=== PATIENT | female | born 1980 | race Caucasian/White ===

== ENCOUNTER 2018-06-12 05:15 | Emergency (ER) | END 2018-06-12 09:40 | disposition home or self-care (01) ==

== ENCOUNTER 2018-08-28 09:25 | Emergency (ER) | END 2018-08-28 12:16 | disposition home or self-care (01) ==

== ENCOUNTER 2019-03-07 12:54 | Observation (INO) | payer OTHER ==
[~2019-03-07] VITALS: Ht 162.6 cm; Wt 112.3 kg
[~2019-03-07 12:54] MED LIST: ACET325T33 PO; CIPR500T4 PO; DIC20 PO; HYDR-3980 PO
[2019-03-07 13:02] VITALS: BP 151/84; PULSE 93; RESP 20; Ht 162.6 cm; Wt 112.3 kg
[2019-03-07] MEDS ORDERED: METF500T3 PO (13:12)
[2019-03-07] MEDS ORDERED: PREN1TAB13 PO (13:13)
[2019-03-07] MEDS ORDERED: LURA120T PO (13:14)
--- NOTE | 2019-03-07 17:08 | HP ---
Date/Time of Note Date/Time of Note DATE: 03/07/19 TIME: 17:03 OB - History Hx of Present Free Text/Dictation March 07, 2019 : 3 Para: 2 Care: Good Care Other Concerns: 38-year-old with IUP at 37 weeks [address] care with Dr[address] Dipti Will, was sent from the clinic today due to low back pain and bilateral lower extremity swelling since yesterday. Patient denies any headache. Reports occasional blurred vision but when she only change her position. Denies any epigastric pain or right upper quadrant pain. She denies any leaking of fluid, vaginal bleeding decreased movement. Antepartum course was completed by AMA as well as diabetes. She is currently on metformin 500 mg p.o. twice daily. Patient noted to be elevated ranging from 130s-160s over 70s-80s during observation. Had once systolic BP in 160s' range only. rest 130-140's/ 70-80's Patient will be admitted for observation and rule out PIH and continuous monitoring. records are available Past Family/Social History * Past Medical, Surgical, Family and Obstetric Histories reviewed from chart. OB Admission Exam Vital Signs Vital Signs Vital Signs Date Temp Pulse Resp B/P (MAP) Pulse Ox O2 O2 Flow FiO2 Time Delivery Rate 03/07/19 97.6 93 20 151/84 Room Air 13:02 (106) Physical Exam HEENT: WNL Lungs: Clear Abdomen: WNL Extremities: Edema (2+ bilateral symmetric lower extremity nonpitting edema noted) Cervical Dilatation: None Effacement: 0% Station: -2 Membranes: Intact Heart Rate: 130's Accelerations: Accelerations Present Decelerations: No Decelerations Varibility: Moderate Contractions on Admission: >10 Minutes Apart Intensity: Mild Last 72 hours Lab Results CBC & BMP 03/07/19 15:43 Liver Function Test 03/07/19 15:43 Alanine Aminotransferase (ALT/SGPT) 13 Albumin 3.3 Alkaline Phosphatase 126 H Aspartate Amino Transf (AST/SGOT) 17 Direct Bilirubin 0.00 Total Protein 6.3 OB Assessment/Plan Other Assessment: IUP at 37 weeks and 4 days Gestational hypertension versus preeclampsia, PIH lab requested Patient will be closel monitored in labor and delivery for rule out PIH Start 24-hour urine protein collection Consider delivery if any evidence of severe preeclampsia, abnormality of the lab or symptoms or worsening of hypertension Plan of care discussed with the patient DARLIN TSAI MD Mar 07, 2019 17:08
[2019-03-07] MEDS ORDERED: NIFEdipine 10 MG CAP PO ONE (17:15)
[2019-03-07] MEDS ORDERED: metFORMIN 500 MG TAB PO SCH (19:00)
--- NOTE | 2019-03-07 19:06 | TRIAGE ---
OB Triage Datetime Report Generated by CPN: 03/07/2019 19:06 Datetime: 03/07/2019 19:04 Assessment Type: Ongoing Assessment (Annotations: PT STABLE BLOOD PRESSURE DECREASED. NO COMPLAINTS OF PAIN. WAITING FOR TRANSFER TO L/D FOR CYTOTEC INDUCTION.) Datetime: 03/07/2019 18:58 Labor Evaluation Frequency: 0 Quality: Mild Pattern: Normal: <= 5 Contractions in 10 Minutes Resting Tone Cuney: Relaxed Heart Rate FHR Baseline Rate: 135 Monitor Mode: External US FHR Baseline Changes: No Baseline Change Variability: Moderate 6-25 bpm Accelerations: 15X15 Decelerations: None Category: Category I Datetime: 03/07/2019 18:55 Stage of : Antepartum Datetime: 03/07/2019 18:39 Vaginal Exam Dilatation (cms): 0.5 Exam By: DR SALCEDA, MD Cervix, Position: Posterior Datetime: 03/07/2019 18:00 Labor Evaluation Frequency: X1 Monitor Mode: External Duration (sec)2399: 60 Quality: Mild Pattern: Normal: <= 5 Contractions in 10 Minutes Resting Tone Cuney: Relaxed Heart Rate FHR Baseline Rate: 130 Monitor Mode: External US FHR Baseline Changes: No Baseline Change Variability: Moderate 6-25 bpm Accelerations: 15X15 Decelerations: None Category: Category I Pain Assessment Pain Scale: 0 Pain Presence: None/Denies Pain Type: N/A Pain Goal: 0 Datetime: 03/07/2019 17:00 Labor Evaluation Frequency: 0 Monitor Mode: External Heart Rate FHR Baseline Rate: 130 Monitor Mode: External US FHR Baseline Changes: No Baseline Change Variability: Moderate 6-25 bpm Accelerations: 15X15 Decelerations: None Category: Category I Pain Assessment Pain Scale: 0 Pain Presence: None/Denies Pain Type: N/A Pain Goal: 0 Datetime: 03/07/2019 16:10 Monitor Mode: External Resting Tone Cuney: Relaxed Heart Rate FHR Baseline Rate: 120 Monitor Mode: External US FHR Baseline Changes: No Baseline Change Variability: Moderate 6-25 bpm Accelerations: 15X15 Decelerations: None Category: Category I Pain Presence: None/Denies Datetime: 03/07/2019 15:06 Labor Evaluation Frequency: 0 Monitor Mode: External Heart Rate FHR Baseline Rate: 130 Monitor Mode: External US FHR Baseline Changes: No Baseline Change Variability: Moderate 6-25 bpm Accelerations: 15X15 Decelerations: None Category: Category I Pain Assessment Pain Scale: 0 Pain Presence: None/Denies Pain Type: N/A Pain Goal: 0 Membrane Status: Intact Datetime: 03/07/2019 14:39 Labor Evaluation Frequency: 0 Monitor Mode: External Heart Rate FHR Baseline Rate: 120 Monitor Mode: External US FHR Baseline Changes: Bradycardia Variability: Moderate 6-25 bpm Accelerations: 15X15 Decelerations: None Category: Category I Pain Assessment Pain Scale: 0 Pain Presence: None/Denies Pain Type: N/A Pain Goal: 0 Datetime: 03/07/2019 14:00 Labor Evaluation Frequency: x1 Monitor Mode: External Duration (sec)2399: 40 Quality: Mild Pattern: Normal: <= 5 Contractions in 10 Minutes Resting Tone Cuney: Relaxed Heart Rate FHR Baseline Rate: 120 Monitor Mode: External US FHR Baseline Changes: No Baseline Change Variability: Moderate 6-25 bpm Accelerations: 15X15 Decelerations: None Category: Category I Pain Assessment Pain Scale: 3 Pain Presence: Intermittent Pain Type: Ache Pain Location: Abdomen; Back; Perineum Pain Goal: 0 Membrane Status: Intact Datetime: 03/07/2019 13:51 Vaginal Exam Dilatation (cms): 0.5 Effacement (%): 50 Station: -3 Exam By: MAY Datetime: 03/07/2019 12:55 Monitor Mode: External Monitor Mode: External US Pain Assessment Pain Scale: 5 Pain Presence: Intermittent Pain Type: Ache Pain Location: Abdomen; Back; Perineum Pain Goal: 2 Membrane Status: Intact Datetime: 03/07/2019 12:54 Stage of : OB Triage Assessment Type: Triage Time of Arrival: 03/07/2019 12:39 EGA: 37.4 Arrived By: Ambulatory Arrived From: Office Chief Complaint: SWOLLEN FEET/PAIN Movement: Present Contractions: Irregular Rupture of Membranes: Denies Vaginal Bleeding: None Vaginal Discharge: Denies Recent Sexual Intercouse: Denies Abdominal Trauma: Not Applicable Patient Complaints: Contractions Time Provider Notified: 03/07/2019 14:25 Provider Notified: Dr. Cobb Initial Plan: EFM, VAGINAL EXAM, BPP, EFW Maternal Assessment Level of Consciousness: Fully Conscious Headache: Denies Blurred Vision: No Respiratory Effort: Unlabored; Regular Rhythm; Equal Expansion Breath Sounds, Left: Clear and Equal Breath Sounds, Right: Clear and Equal Nausea/Vomiting: Denies RUQ Epigastric Pain: Denies Lower Extremities Edema: None Degree: None Upper Extremities Edema: None Degree: None Facial Edema: None Temperature Route: Axillary Fall Risk Assessment History of Falling: (0) No Secondary Diagnosis: (0) No Ambulatory Aid: (0) Bedrest/Nurse Assist IV Therapy: (0) No Gait: (0) Normal/Bedrest/Immobile Mental Status: (0) Oriented to Own Ability Fall Score: 0 Fall Risk Score Definition: No Risk: No action required
[2019-03-07] MEDS ORDERED: LACTATED RINGER'S 1,000 ML IV SCH (20:17)
[2019-03-07] MEDS ORDERED: LACTATED RINGER'S 1,000 ML IV PRN (20:17)
[2019-03-07] MEDS ORDERED: LIDOCAINE 1% (MPF) 30 ML INJ INJ PRN (20:30)
[2019-03-07] MEDS ORDERED: OXYTOCIN 30 UNITS/LR 500 ML IV SCH ×2 (20:30)
[2019-03-07] MEDS ORDERED: BUTORPHANOL 2 MG INJ IV PRN ×2 (20:30)
[2019-03-07] MEDS ORDERED: OXYTOCIN 30 UNITS/LR 500 ML IV PRN (20:30)
[2019-03-07] MEDS ORDERED: MISOPROSTOL 200 MCG TAB PR PRN (20:30)
[2019-03-07] MEDS ORDERED: IBUPROFEN 600 MG TAB PO PRN (20:30)
[2019-03-07] MEDS ORDERED: MISOPROSTOL 50 MCG CAPSULE VAG ONE (20:30)
[2019-03-07] MEDS ORDERED: METHYLERGONOVINE 0.2 MG INJ IM PRN (20:30)
[2019-03-07] MEDS ORDERED: CARBOPROST 250 MCG INJ IM PRN (20:30)
[2019-03-07] MEDS: DEXTROSE 5%-LR 1,000 ML IV SCH (20:53)
[2019-03-07] MEDS: MISOPROSTOL 50 MCG CAPSULE PO PRN (21:09)
[2019-03-07] MEDS: LACTATED RINGER'S 1,000 ML IV SCH (21:11)
[2019-03-07] MEDS ORDERED: MAGNESIUM SULFATE 4 GM/100 ML 100 ML IV ONE (22:00)
[2019-03-07] MEDS ORDERED: CA GLUCONATE (GM) 10% 10ML INJ IV PRN (22:00)
[2019-03-07] MEDS ORDERED: MAGNESIUM SULFATE 4 GM/100 ML 100 ML ONE (22:15)
[2019-03-07] MEDS: MAGNESIUM SULFATE 20 GM/500 ML 500 ML IV SCH (22:59)
[2019-03-07] MEDS ORDERED: DEXTROSE 50% 50 ML SYRINGE IV PRN ×2 (23:45)
[2019-03-07] MEDS ORDERED: GLUCOSE GEL 15 GRAM TUBE PO PRN ×2 (23:45)
[2019-03-07] MEDS ORDERED: GLUCOSE GEL 15 GRAM TUBE BUCCAL PRN (23:45)
[2019-03-07] MEDS ORDERED: GLUCAGON 1 MG INJ IM PRN (23:45)
[2019-03-08] MEDS: LACTATED RINGER'S 1,000 ML IV SCH (01:11)
[2019-03-08] MEDS: MISOPROSTOL 50 MCG CAPSULE PO PRN ×2 (01:21→06:55)
[2019-03-08] MEDS: DEXTROSE 5%-LR 1,000 ML IV SCH (04:53)
[2019-03-08] MEDS ORDERED: ACETAMINOPHEN 325 MG TAB PO ONE (06:30)
[2019-03-08] MEDS ORDERED: INSULIN ASPART [NOVOLOG] 3 ML PEN SC SCH (07:35)
--- NOTE | 2019-03-08 07:39 | PREAC ---
Date/Time of Note Date/Time of Note DATE: 03/08/19 TIME: 07:38 Anesthesia Eval and Record Evaluation Time Pre-Procedure Interview DATE: 03/08/19 TIME: 07:38 Age 38 Sex female NPO: Other (na) Preoperative diagnosis labor pain Planned procedure epidural Past Medical History Past Medical History: Includes Cardio: HTN Endo: Diabetes GI: Obesity Surgery & Anesthesia Issues No known issue Meds Anticoagulation: No Beta Jeronimo within 24 hr: No Reason Beta Jeronimo not given: Pt. not on B-Jeronimo Active Scripts Acetaminophen* (Tylenol*) 325 Mg Tablet, 1 TAB PO Q6 PRN for PAIN AND OR ELEVATED TEMP, #20 TAB Prov:JATINDER HUERTAS MD 08/28/18 Dicyclomine HCl (Dicyclomine HCl) 20 Mg Tablet, 20 MG PO QID for pain, #30 Prov:JUSTIN GARVIN DO 06/12/18 Ciprofloxacin Hcl* (Ciprofloxacin Hcl*) 500 Mg Tablet, 500 MG PO BID for 7 Days, TAB Prov:JUSTIN GARVIN DO 06/12/18 Hydrocodone/Acetaminophen ([place] 10-325 Tablet) 1 Each Tablet, 1 TAB PO Q6H PRN for PAIN, #20 TAB Prov:JUSTIN GARVIN DO 06/12/18 Reported Medications Lurasidone Hcl (LATUDA) 120 Mg Tablet, 120 MG PO QHS, #30 TAB 03/07/19 Pnv95/Ferrous Fumarate/FA ( Vitamins Tablet) 1 Each Tablet, 1 EACH PO DAILY, TAB 03/07/19 Metformin* (Glucophage* XR) 500 Mg Tab.sr.24h, 500 MG PO BID, #30 TAB 03/07/19 Current Medications Butorphanol Tartrate (Stadol) 1 mg Q2H PRN IV PAIN; Start 03/07/19 at 20:30 Butorphanol Tartrate (Stadol) 2 mg Q2H PRN IV .PAIN; Start 03/07/19 at 20:30 Lidocaine (Xylocaine 1% (Mpf)) 30 ml ONCE PRN INJ .EPISIOTOMY; Start 03/07/19 at 20:30 Oxytocin/Lactated Ringer's 500 ml @ 500 mls/hr ONCE POST IV ; Start 03/07/19 at 20:30 Oxytocin/Lactated Ringer's 500 ml @ 125 mls/hr POST IV ; Start 03/07/19 at 20:30 Ibuprofen (Motrin) 600 mg ONCE PRN PO .PAIN 1-5; Start 03/07/19 at 20:30 Lactated Ringer's 1,000 ml @ 2,000 mls/hr Q30M PRN IV .ANESTHESIA; Start 03/07/19 at 20:17 Oxytocin/Lactated Ringer's 500 ml @ 0 mls/hr ONCE PRN IV .VAGINAL BLEEDING; Start 03/07/19 at 20:30 Methylergonovine Maleate (Methergine) 0.2 mg ONCE PRN IM .VAGINAL BLEEDING; Start 03/07/19 at 20:30 Carboprost Tromethamine (Hemabate) 250 mcg ONCE PRN IM .VAGINAL BLEEDING; Start 03/07/19 at 20:30 Misoprostol (Cytotec) 1,000 mcg ONCE PRN [place] .VAGINAL BLEEDING; Start 03/07/19 at 20:30 Lactated Ringer's 1,000 ml @ 125 mls/hr Q8H IV Last administered on 03/08/19at 01:11; Admin Dose 125 MLS/HR; Start 03/07/19 at 20:53 Dextrose/Lactated Ringer's 1,000 ml @ 125 mls/hr Q8H IV ; Start 03/07/19 at 20:53 Misoprostol (Cytotec 50 Mcg Capsule) 50 mcg Q4 PRN PO CERVICAL RIPENING Last administered on 03/08/19at 06:55; Admin Dose 50 MCG; Start 03/07/19 at 21:00 Magnesium Sulfate 500 ml @ 50 mls/hr Q10H IV Last administered on 03/07/19at 22:59; Admin Dose 50 MLS/HR; Start 03/07/19 at 23:00 Calcium Gluconate (Ca Gluc) 1 gm ONCE PRN IV FOR MAGNESIUM TOXICITY; Start 03/07/19 at 22:00 Insulin Aspart (Novolog Insulin Pen) NOVOLOG *MILD* ALGORITHM WITH MEALS BEDTIME SC ; Start 03/08/19 at 07:35 Miscellaneous Information 1 ea NOTE XX ; Start 03/07/19 at 23:45 Glucose (Glutose) 15 gm Q15M PRN PO DECREASED GLUCOSE; Start 03/07/19 at 23:45 Glucose (Glutose) 22.5 gm Q15M PRN PO DECREASED GLUCOSE; Start 03/07/19 at 23:45 Dextrose (D50w Syringe) 25 ml Q15M PRN IV DECREASED GLUCOSE; Start 03/07/19 at 23:45 Dextrose (D50w Syringe) 50 ml Q15M PRN IV DECREASED GLUCOSE; Start 03/07/19 at 23:45 Glucagon (Glucagen) 1 mg Q15M PRN IM DECREASED GLUCOSE; Start 03/07/19 at 23:45 Glucose (Glutose) 15 gm Q15M PRN BUCCAL DECREASED GLUCOSE; Start 03/07/19 at 23:45 Meds reviewed: Yes Allergies Coded Allergies: No Known Allergy (Unverified , 08/28/18) Allergies Reviewed: Yes Labs/Studies Labs Reviewed: Reviewed by anesthesiologist Result Diagram: 03/07/19 1543 03/07/19 1543 Laboratory Tests 03/07/19 15:43 Blood Bank Test 03/07/19 15:38 Antibody Screen NEGATIVE Blood Type A POSITIVE Rh Immune Globulin Candidate NO test: N/A Pre-procedure Exam Last vitals Vital Signs Date Temp Pulse Resp B/P (MAP) Pulse Ox O2 O2 Flow FiO2 Time Delivery Rate 03/07/19 97.6 93 20 151/84 Room Air 13:02 (106) Airway: Adequate mouth opening, Adequate thyromental dist Mallampati: Mallampati IV Teeth: Normal Lung: Normal Heart: Normal ASA Physical Status ASA physical status: 3 Emergency: None Pre-operative Attestations Prior to commencing anesthesia and surgery, the patient was re-evaluated, there was verification of: *The patient's identity *The results of appropriate recent lab work and preoperative vital signs *The above evaluation not changing prior to induction *Anesthetic plan, risk benefits, alternative and complications discussed with patient/family; questions answered; patient/family understands, accepts and wishes to proceed. CHARLY GUEVARA DO Mar 08, 2019 07:39
[2019-03-08] MEDS ORDERED: FENTAnyl 50 MCG/ML VIAL ONE (07:54)
[2019-03-08] MEDS ORDERED: NALOXONE (0.4 MG/ML) INJ IV PRN (08:00)
[2019-03-08] MEDS ORDERED: FENTAnyl 2MCG/ML-ROPIV 0.2% 100 ML BAG EPI SCH (08:00)
[2019-03-08] MEDS: MAGNESIUM SULFATE 20 GM/500 ML 500 ML IV SCH (09:05)
--- NOTE | 2019-03-08 10:16 | QN ---
Documentation Comment 37+wks GA Gestational HTN has admitted for Delivery Called By Nurse ,that the patient is signing AMA and is about to leave the Hospital. Patient's provider , has been informed and she also asked to let the laborist know, I personally discussed all the risks including but not limiting to possible Stroke,Maternal and extensively discussed with the patient but she still desires to leave the hospital.I asked her Nurse,Tatum to contact and let her know. Also I ask Felicia ,charged Nurse to let Nursing Stave Saw Operator and ,TRAY WORKER to be informed HILDA LIND M.D. Mar 08, 2019 10:16
--- NOTE | 2019-03-08 14:24 | PAC ---
Date/Time of Note Date/Time of Note DATE: 03/08/19 TIME: 14:22 Post-Anesthesia Notes Post-Anesthesia Note Last documented vital signs Vital Signs Date Temp Pulse Resp B/P (MAP) Pulse Ox O2 O2 Flow FiO2 Time Delivery Rate 03/07/19 97.6 93 20 151/84 Room Air 13:02 (106) at 0948 patient left AMA despite high BP and tachycardia: would not allow repeat vitals per RN. I was not notified patient left AMA until 1400 Activity: Other Respiratory function: Other Cardiovascular function: Other Mental status: Other Pain reasonably controlled: Yes Hydration appropriate: Yes Nausea/Vomiting absent: Yes Comments was not able top assess patient ISMAELCHARLY HOLLIDAY Mar 08, 2019 14:24
== END 2019-03-08 10:20 | disposition left against medical advice (07) ==
LOC: OBT 12:54 → L-D 12:54 → INTOOBSV 17:55 → OBT 17:55 → UNDOADMIN 17:55 → L-D 17:55
PROVIDERS: ADMIT Obstetrics & Gynecology; ATTEND Obstetrics & Gynecology
DX: O13.3 Gestational [pregnancy-induced] hypertension without significant proteinuria, third trimester (principal); Z3A.37 37 weeks gestation of pregnancy
CPT/HCPCS: 76815; 76818; 80053; 80307; 81001; 82962; 83735; 84560; 85025; 85610; 85730; 86592; 86850; 86900; 86901; 87340; J1815; J3010; J3475; J7120; J7121; Z7500; Z7610; 81003; 99217; G0378; G0463